=== PATIENT | male | born 1945 | race Caucasian/White ===

== ENCOUNTER → 2017-10-23 10:27 | Outpatient (CLI) | payer MEDICARE, OTHER | END | disposition home or self-care (01) | LOC: D.MRI 10:27 | DX: M54.5 Low back pain (principal) ==

== ENCOUNTER → 2019-07-21 13:58 | Outpatient (CLI) | payer MEDICARE, OTHER | END | disposition home or self-care (01) | LOC: D.US 13:58 | PROVIDERS: ATTEND Family Medicine | DX: R60.0 Localized edema (principal) ==